=== PATIENT | female | born 1945 ===

== ENCOUNTER 2020-12-22 10:22 | Outpatient (REF) | payer MEDICARE, SELFPAY ==
--- NOTE | 2020-12-22 10:27 | MM_ITS ---
EXAMINATION: MM SCREENING DIGITAL BREAST TOMOSYNTHESIS, BILATERAL CLINICAL INFORMATION: Screening. Asymptomatic. The lifetime risk of breast cancer based on the Tyrer-Cuzick Model is 3%. COMPARISON: Mammography: 12/17/2019, 11/21/2018, 11/04/2017 TECHNIQUE: Digital breast tomosynthesis is performed in both the craniocaudal and mediolateral oblique views along with computer-aided detection (CAD). Synthesized 2D images are generated from the tomosynthesis. FINDINGS: There are scattered areas of fibroglandular density (ACR BI-RADS breast composition Category b). There are no significant masses, abnormal calcifications, or other abnormalities. There are scattered benign round and vascular calcifications again seen. The axilla and skin contours are unremarkable. MM/MM tomosynthesis screening BI IMPRESSION: No mammographic evidence of malignancy. ASSESSMENT: BI-RADS 2: Benign RECOMMENDATION: Routine annual mammography screening. This patient's information was entered into a reminder system with a target due date for their next mammogram.
== END 2020-12-22 10:23 | disposition home or self-care (01) ==
LOC: HO.MAMMO 10:22
PROVIDERS: PCP Internal Medicine; Visit Provider Internal Medicine
DX: Z12.31 Encounter for screening mammogram for malignant neoplasm of breast (principal)
CPT/HCPCS: 77063; 77067

== ENCOUNTER 2021-04-17 07:56 | Outpatient (REF) | payer MEDICARE, SELFPAY ==
[2021-04-17 10:21] LABS: MANUAL DIFF FLAG NO
[2021-04-17 10:43] LABS: Estimated Average Glucose 148 mg/dL; Hemoglobin A1c % 6.8 %
[2021-04-17 10:52] LABS: Alanine Aminotransferase 17 U/L (0-31); Albumin Level 4.4 g/dL (3.5-5.0); Alkaline Phosphatase 72 U/L (39-117); Anion Gap 13 (12-20); Aspartate Amino Transferase 26 U/L (5-31); Bilirubin Total 0.6 mg/dL (0.0-1.0); Blood Urea Nitrogen 15 mg/dL (9-16); Calcium 9.5 mg/dL (8.4-10.2); Carbon Dioxide 27 mmol/L (22-29); Chloride 102 mmol/L (96-108); Cholesterol 151 mg/dL; Estimated Glomerular Filt Rate > 60; Glucose Fasting 116 mg/dL (60-99); HDL Cholesterol 64 mg/dL; LDL Cholesterol Calculated 62 mg/dl; Potassium 4.6 mmol/L (3.3-5.1); Sodium 137 mmol/L (135-145); Total Protein 7.3 g/dL (6.5-8.0); Triglycerides 126 mg/dL
[2021-04-17 10:55] LABS: Basophils Absolute Auto 0.1 X10*3/uL (0.0-0.2); Eosinophils Absolute Auto 0.2 X10*3/uL (0.0-0.4); Eosinophils Percent Auto 4.8 % (0-4); Hematocrit 35.5 % (37-47); Hemoglobin 11.5 g/dl (12.0-16.0); Imm Gran Abs Auto 0.01 X10*3/uL (0.00-0.03); Imm Gran Pct Auto 0.2 % (0.0-0.4); Lymphocytes Absolute Auto 1.6 X10*3/uL (1.2-4.9); Lymphocytes Percent Auto 32.3 % (20-40); Mean Corpuscular HGB Conc 32.4 g/dl (31.0-35.0); Mean Corpuscular Volume 89.6 fL (80-98); Mean Platelet Volume 10.4 fL (9.4-12.3); Monocytes Absolute Auto 0.5 X10*3/uL (0.1-1.2); Neutrophils Absolute Auto 2.6 X10*3/uL (2.0-8.3); Neutrophils Percent Auto 52.7 % (45-73); Platelet Count 225 X10*3/uL (160-400); Red Blood Count 3.96 X10*6/uL (4.20-5.50); Red Cell Distribution Width 12.6 % (11.0-16.0)
[2021-04-17 11:16] LABS: Thyroid Stimulating Hormone 0.89 uIU/mL (0.32-4.0)
[2021-04-17 11:23] LABS: Creatinine Urine 23.93 mg/dL; Microalbum/Creatinine Ratio Ur 37.6 ug/mg cr
== END 2021-04-17 07:57 | disposition home or self-care (01) ==
LOC: HO.10HDL 07:56
PROVIDERS: Visit Provider Internal Medicine
DX: Z00.00 Encounter for general adult medical examination without abnormal findings (principal); E11.9 Type 2 diabetes mellitus without complications; E03.9 Hypothyroidism, unspecified
CPT/HCPCS: 36415; 80053; 80061; 82043; 83036; 84443; 85025

== ENCOUNTER 2022-01-02 07:55 | Outpatient (REF) | payer MEDICARE, SELFPAY ==
--- NOTE | ~2022-01-02 | MM_ITS ---
EXAMINATION: MM SCREENING DIGITAL BREAST TOMOSYNTHESIS, BILATERAL CLINICAL INFORMATION: Screening. Asymptomatic. The lifetime risk of breast cancer based on the Tyrer-Cuzick Model is 2%. COMPARISON: Mammography: 12/22/2020, 12/17/2019, 11/21/2018 TECHNIQUE: Digital breast tomosynthesis is performed in both the craniocaudal and mediolateral oblique views along with computer-aided detection (CAD). Synthesized 2D images are generated from the tomosynthesis. FINDINGS: There are scattered areas of fibroglandular density (ACR BI-RADS breast composition Category b). There are no significant masses, abnormal calcifications, or other abnormalities. Parenchymal pattern is similar to prior studies. There is no developing density or architectural abnormality. The axilla and skin contours are unremarkable. No significant changes. MM/MM tomosynthesis screening BI IMPRESSION: No mammographic evidence of malignancy. ASSESSMENT: BI-RADS 2: Benign RECOMMENDATION: Routine annual mammography screening. This patient's information was entered into a reminder system with a target due date for their next mammogram.
== END 2022-01-02 07:56 | disposition home or self-care (01) ==
LOC: HO.MAMMO 07:55
PROVIDERS: PCP Internal Medicine; Visit Provider Internal Medicine
DX: Z12.31 Encounter for screening mammogram for malignant neoplasm of breast (principal)
CPT/HCPCS: 77063; 77067

== ENCOUNTER 2022-03-07 08:16 | Outpatient (REF) | payer MEDICARE, SELFPAY ==
[2022-03-07 11:02] LABS: Cholesterol 140 mg/dL; Glucose Fasting 105 mg/dL (60-99); HDL Cholesterol 60 mg/dL; LDL Cholesterol Calculated 63 mg/dl; Triglycerides 89 mg/dL
[2022-03-07 12:14] LABS: Estimated Average Glucose 148 mg/dL; Hemoglobin A1c % 6.8 %
== END 2022-03-07 08:17 | disposition home or self-care (01) ==
LOC: HO.10HDL 08:16
PROVIDERS: Visit Provider Internal Medicine
DX: E11.65 Type 2 diabetes mellitus with hyperglycemia (principal)
CPT/HCPCS: 36415; 80061; 82947; 83036

== ENCOUNTER 2022-05-23 13:57 | Emergency (ER) | payer MEDICARE, SELFPAY ==
[2022-05-23 15:13] VITALS: BP 180/61; PULSE 104; RESP 17; TEMP 37.1; O2SAT 98; BMI 20.1
[2022-05-23 16:28] LABS: MANUAL DIFF FLAG NO
[2022-05-23 16:45] LABS: Basophils Percent Auto 0.3 % (0-2); Eosinophils Percent Auto 0.1 % (0-4); Hematocrit 35.7 % (37.0-47.0); Hemoglobin 11.6 g/dl (12.0-16.0); Imm Gran Abs Auto 0.03 X10*3/uL (0.00-0.03); Imm Gran Pct Auto 0.3 % (0.0-0.4); Lymphocytes Absolute Auto 1.2 X10*3/uL (1.2-4.9); Lymphocytes Percent Auto 12.3 % (20-40); Mean Corpuscular HGB Conc 32.5 g/dl (31.0-35.0); Mean Corpuscular Hemoglobin 28.1 pg (27.0-33.0); Mean Corpuscular Volume 86.4 fL (80.0-98.0); Mean Platelet Volume 9.8 fL (9.4-12.3); Monocytes Absolute Auto 0.6 X10*3/uL (0.1-1.2); Platelet Count 257 X10*3/uL (160-400); Red Blood Count 4.13 X10*6/uL (4.20-5.50); Red Cell Distribution Width 12.7 % (11.0-16.0); White Blood Count 9.9 X10*3/uL (4.8-10.8)
[2022-05-23 16:50] LABS: Alanine Aminotransferase 16 U/L (0-31); Albumin Level 4.5 g/dL (3.5-5.0); Alkaline Phosphatase 85 U/L (39-117); Anion Gap 16 (12-20); Aspartate Amino Transferase 27 U/L (5-31); Bilirubin Total 0.4 mg/dL (0.0-1.0); Blood Urea Nitrogen 15 mg/dL (9-16); Carbon Dioxide 26 mmol/L (22-29); Chloride 104 mmol/L (96-108); Creatinine Clr Calc Pharmacy 57.3; Estimated Glomerular Filt Rate > 60; Glucose Random 140 mg/dL (60-115); Potassium 5.4 mmol/L (3.3-5.1); Sodium 141 mmol/L (135-145)
== END 2022-05-23 22:23 | disposition left against medical advice (07) ==
PROVIDERS: Emergency Provider Emergency Medicine; PCP Internal Medicine
DX: J39.0 Retropharyngeal and parapharyngeal abscess (principal); R51.9 Headache, unspecified; H92.01 Otalgia, right ear; E78.5 Hyperlipidemia, unspecified; I10 Essential (primary) hypertension; E11.9 Type 2 diabetes mellitus without complications; Z87.891 Personal history of nicotine dependence
CPT/HCPCS: 36415; 80053; 85025; 99281; 99283

== ENCOUNTER 2023-05-21 08:38 | Outpatient (REF) | payer MEDICARE, SELFPAY ==
[2023-05-21 10:25] LABS: MANUAL DIFF FLAG NO
[2023-05-21 10:31] LABS: Basophils Absolute Auto 0.1 X10*3/uL (0.0-0.2); Basophils Percent Auto 1.3 % (0-2); Eosinophils Absolute Auto 0.2 X10*3/uL (0.0-0.4); Hematocrit 35.3 % (37.0-47.0); Hemoglobin 11.2 g/dl (12.0-16.0); Imm Gran Abs Auto 0.01 X10*3/uL (0.00-0.03); Imm Gran Pct Auto 0.2 % (0.0-0.4); Lymphocytes Absolute Auto 1.7 X10*3/uL (1.2-4.9); Lymphocytes Percent Auto 31.6 % (20-40); Mean Corpuscular HGB Conc 31.7 g/dl (31.0-35.0); Mean Corpuscular Volume 85.1 fL (80.0-98.0); Monocytes Absolute Auto 0.4 X10*3/uL (0.1-1.2); Neutrophils Percent Auto 55.9 % (45-73); Platelet Count 218 X10*3/uL (160-400); Red Blood Count 4.15 X10*6/uL (4.20-5.50); Red Cell Distribution Width 13.3 % (11.0-16.0); White Blood Count 5.4 X10*3/uL (4.8-10.8)
[2023-05-21 11:12] LABS: Alanine Aminotransferase 20 U/L (0-31); Albumin Level 4.2 g/dL (3.5-5.0); Alkaline Phosphatase 71 U/L (39-117); Anion Gap 13 (12-20); Aspartate Amino Transferase 33 U/L (5-31); Bilirubin Total 0.6 mg/dL (0.0-1.0); Blood Urea Nitrogen 18 mg/dL (9-16); Calcium 9.8 mg/dL (8.4-10.2); Carbon Dioxide 29 mmol/L (22-29); Chloride 104 mmol/L (96-108); Cholesterol 138 mg/dL; Estimated Glomerular Filt Rate > 60; Glucose Fasting 118 mg/dL (60-99); HDL Cholesterol 56 mg/dL; LDL Cholesterol Calculated 64 mg/dl; Potassium 4.5 mmol/L (3.3-5.1); Sodium 141 mmol/L (135-145); Total Protein 7.6 g/dL (6.5-8.0); Triglycerides 91 mg/dL
[2023-05-21 11:31] LABS: Thyroid Stimulating Hormone 1.32 uIU/mL (0.32-4.0)
== END 2023-05-21 08:39 | disposition home or self-care (01) ==
LOC: HO.10HDL 08:38
PROVIDERS: Visit Provider Internal Medicine
DX: D64.9 Anemia, unspecified (principal); E03.9 Hypothyroidism, unspecified; E78.5 Hyperlipidemia, unspecified; N28.9 Disorder of kidney and ureter, unspecified
CPT/HCPCS: 36415; 80053; 80061; 84443; 85025

== ENCOUNTER 2024-06-09 08:28 | Outpatient (REF) | payer MEDICARE, SELFPAY ==
[2024-06-09 10:18] LABS: MANUAL DIFF FLAG NO
[2024-06-09 10:29] LABS: Basophils Absolute Auto 0.1 X10*3/uL (0.0-0.2); Basophils Percent Auto 1.2 % (0-2); Eosinophils Absolute Auto 0.2 X10*3/uL (0.0-0.4); Eosinophils Percent Auto 4.8 % (0-4); Hematocrit 33.3 % (37.0-47.0); Hemoglobin 10.7 g/dl (12.0-16.0); Imm Gran Abs Auto 0.01 X10*3/uL (0.00-0.03); Imm Gran Pct Auto 0.2 % (0.0-0.4); Lymphocytes Absolute Auto 1.5 X10*3/uL (1.2-4.9); Mean Corpuscular HGB Conc 32.1 g/dl (31.0-35.0); Mean Corpuscular Hemoglobin 26.9 pg (27.0-33.0); Mean Corpuscular Volume 83.7 fL (80.0-98.0); Mean Platelet Volume 10.6 fL (9.4-12.3); Monocytes Absolute Auto 0.5 X10*3/uL (0.1-1.2); Neutrophils Absolute Auto 2.7 x10*3/uL (2.0-8.3); Neutrophils Percent Auto 53.8 % (45-73); Platelet Count 212 X10*3/uL (160-400); Red Blood Count 3.98 X10*6/uL (4.20-5.50); Red Cell Distribution Width 13.9 % (11.0-16.0)
[2024-06-09 10:42] LABS: Alanine Aminotransferase 13 U/L (0-31); Albumin Level 4.3 g/dL (3.5-5.0); Alkaline Phosphatase 71 U/L (39-117); Anion Gap 16 (12-20); Aspartate Amino Transferase 25 U/L (5-31); Bilirubin Total 0.5 mg/dL (0.0-1.0); Blood Urea Nitrogen 21 mg/dL (9-16); Calcium 9.9 mg/dL (8.4-10.2); Carbon Dioxide 26 mmol/L (22-29); Chloride 100 mmol/L (96-108); Cholesterol 141 mg/dL (<200); Estimated Glomerular Filt Rate > 60; Glucose Fasting 134 mg/dL (60-99); HDL Cholesterol 58 mg/dL (>40); LDL Cholesterol Calculated 62 mg/dL (<100); Potassium 4.5 mmol/L (3.3-5.1); Sodium 137 mmol/L (135-145); Total Protein 7.8 g/dL (6.5-8.0); Triglycerides 106 mg/dL (<150)
[2024-06-09 11:02] LABS: Thyroid Stimulating Hormone 1.78 uIU/mL (0.32-4.0)
== END 2024-06-09 08:29 | disposition home or self-care (01) ==
LOC: HO.10HDL 08:28
PROVIDERS: Visit Provider Internal Medicine
DX: Z13.220 Encounter for screening for lipoid disorders (principal); Z13.29 Encounter for screening for other suspected endocrine disorder; Z20.2 Contact with and (suspected) exposure to infections with a predominantly sexual mode of transmission
CPT/HCPCS: 36415; 80053; 80061; 84443; 85025

== ENCOUNTER 2024-07-01 11:05 | Outpatient (AMB) | payer MEDICARE, SELFPAY ==
--- NOTE | 2024-07-01 11:09 | A.OFFVIS_ITS ---
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 by: Spouse Allergies No Known Allergies Allergy (Verified 07/01/24 11:14) Medication List - Last Reconciled 07/02/24 by Rick Swift MD blood sugar diagnostic Onetouch Ultra test Strips To check blood sugars once a day ezetimibe 10 mg PO DAILY gabapentin 300 mg PO BID glipizide 10 mg (2 x 5 mg) PO BID lancets TO CHECK BLOOD SUGARS ONCE A DAY lancets Onetouch Lancets to check blood sugars once a day lisinopril 10 mg PO DAILY metformin 500 mg PO BID omeprazole 20 mg PO DAILY simvastatin 40 mg PO DAILY HPI wellness HPI Details hyperlipidemia hypertension and diabetes; compliant [facility] Medical History (Updated 07/02/24 @ 09:43 by Rick Swift MD) Diabetes mellitus Surgical History History of hip replacement Family History Mother No problems noted. Father No problems noted. Social History Housing: House Alcohol intake: never Patient Tobacco Use Status: Former Tobacco user Tobacco use type: Cigarette Second Hand Smoke Exposure: No Current occupational status: retired Questionnaire Medicare Wellness Checkup [age] What gender do you identify with?: female During the past 4 weeks, how much have you been bothered by emotional problems such as feeling anxious, depressed, irritable, sad or downhearted, and blue?: not at all During the past 4 weeks, has your physical & emotional health limited your social activities with family, friends, neighbors, or groups?: not at all During the past 4 weeks, how much bodily pain have you generally had?: no pain During the past 4 weeks, was someone available to help you if you needed & wanted help?: yes, as much as I wanted During the past 4 weeks, what was the hardest physical activity you could do for at least 2 minutes?: heavy Can you get to places out of walking distance without help? (For eg., can you travel alone on buses, taxis or drive your car?): Yes Can you go shopping for groceries or clothes without someone's help?: Yes Can you prepare your own meals?: Yes Can you do your housework without help?: Yes Because of any health problems, do you need the help of another person with your personal care needs such as eating, bathing, dressing or getting around the house?: Yes Can you handle your own money without help?: Yes During the past 4 weeks, how would you rate your health in general?: excellent During the past 4 weeks how have things been going for you?: very well; could hardly better Are you having difficulties driving your car?: not applicable, I don't use a car Do you always fasten your seat belt when you are in a car?: yes, usually During past 4 weeks, have you been bothered by the following: never: Falling or dizzy when standing up, Sexual problems?, Trouble eating well?, Teeth or denture problems?, Problems using the telephone? and Tiredness or fatigue? Have you fallen 2 or more times in the past year?: No Are you afraid of falling?: No Are you a smoker?: no During the past 4 weeks, how many drinks of wine, beer, or other alcoholic beverages did you have?: no alcohol at all Do you exercise for about 20 minutes 3 or more times a week?: yes, most of the time Have you been given information to help with the following?: no: Hazards in your house that might hurt you? and no: Keeping track of your medications? How often do you have trouble taking medicines the way you have been told to take them?: I always take medicine as prescribed How confident are you that you can control & manage most of your health problems?: very confident What is your race?: White Mini Mental State Exam (MMSE) Orientation What is the (year) (season) (date) (day) (month)?: year, season, date, day and month Where are we (state) (county) (town or city) (hospital) (floor)?: state, county, town or city, hospital/clinic and floor Registration Name of 3 unrelated objects clearly and slowly, then ask patient to repeat all 3 of them. (1st repeat determines score. Make sure they can repeat all three): object 1, object 2 and object 3 Recall Ask patient to repeat the 3 items from question #3.: object 1, object 2 and object 3 Score Score: 16 Activity of Daily Living Bathing - sponge bath, tub bath or shower: receives no assistance (gets in/out by self, if usual bathing means Dressing - getting clothes from closets & drawers, including inner/outer garments & fasteners.: gets clothes & gets completely dressed without help Toileting - going to the 'toilet room' for urine/bowel elimination & cleaning self/arranging clothes: goes to toilet room, cleans self, arranges clothes without help Transfer: moves in & out of bed and chair without help (may use support object) Continence: controls urination/bowel movements completely by self Feeding: feeds self without help Total Score: 0 Information obtained from: patient Using telephone: independent Traveling: independent Shopping: independent Preparing meals: independent Housework: independent Taking medicine: independent Managing money: independent PHQ-9 Over the last 2 weeks, how often have you been bothered by any of the following problems? 1. Little interest or pleasure in doing things: not at all 2. Feeling down, depressed, or hopeless: not at all 3. Trouble falling or staying asleep, or sleeping too much: not at all 4. Feeling tired or having little energy: not at all 5. Poor appetite or overeating: not at all 6. Feeling bad about yourself - or that you are a failure or have let yourself or your family down: not at all 7. Trouble concentrating on things, such as reading the newspaper or watching television: not at all 8. Moving or speaking so slowly that other people could have noticed. Or the o pposite - being so fidgety or restless that you have been moving around a lot more than usual: not at all 9. Thoughts that you would be better off or of hurting yourself in some way: not at all Total score: 0 Depression Screening Interpretation: Negative Depression Screening Done: Yes Source: Developed by Drs. Manav Cervantes, Mirlande Sifuentes, Luis Angel Diamond and colleagues, with an educational katya from [employer]. ESA-7 AMB Questionnaire ESA-7 Date ESA - 7 assessed: 07/01/24 Feeling nervous, anxious, or on edge: 0 = Not at all Not being able to stop or control worryin = Not at all Worrying too much about different things: 0 = Not at all Trouble relaxin = Not at all Being so restless that it is hard to sit still: 0 = Not at all Becoming easily annoyed or irritable: 0 = Not at all Feeling afraid as if something awful might happen: 0 = Not at all Total ESA-7 score (0-4 normal; 5-9 mild; 10-14 moderate; 15-21 severe): 0 Source: Developed by Drs. Manav Cervantes, Mirlande Sifuentes, Luis Angel Diamond and colleagues, with an educational katya from [employer]. Fall Risk Assessment Fall Risk Assessment Fall risk assessment: No Falls in past year Physical Exam Vital Signs: Last Vital Signs BP 170/80 H 07/01/24 11:12 BMI result Body Mass Index 20.6 Results AMB Hemoglobin A1c AMB Hemoglobin A1c 7.7 % Last Edit by DANIEL Diaz on 07/01/24 11:2 0 Results Reviewed Results Reviewed: Laboratory Last Values Hgb A1c (Clinic) 7.7 % (4.0-6.0) H 07/01/24 11:18 Assessment & Plan Assessment & Plan (1) Encounter for subsequent annual wellness visit (AWV) in Medicare patient: Code(s): Z00.00 - Encounter for general adult medical examination without abnormal findings Plan: stable; do labs Orders: Orders AMB Hemoglobin A1c 07/01/24 E11.9 - Type 2 diabetes mellitus without complications Lipid Panel Today Z13.220 - Encounter for screening for lipoid disorders Comprehensive [place]. Panel Fast Today Z13.9 - Encounter for screening, unspecified Hemoglobin A1c Today R73.9 - Hyperglycemia, unspecified Thyroid Stimulating Hormone Today Z13.29 - Encounter for screening for other suspected endocrine disorder Complete Blood Count Auto Diff Today Z13.0 - Encounter for screening for diseases of the blood and blood-forming organs and certain disorders involving the immune mechanism Microalbumin, Random (w Creat) Today E11.69 - Type 2 diabetes mellitus with other specified complication, E66.01 - Morbid (severe) obesity due to excess calories Quality Reporting (2019) Fall Risk Screening ([facility] 139) Fall risk assessment: No Falls in past year Depression/Bipolar (159/160/161/177) PHQ-9: Total score: 0 Coding Level of Care Code Medicare Subsequent (G0439) Diagnoses Encounter for subsequent annual wellness visit (AWV) in Medicare patient Z00.00 CPT Codes Advance Care Planning - Advance Care Planning discussion: On file, no changes ([id number]) Advance Care Planning Advance Care Planning discussion: On file, no changes Forms completed: Health Care Proxy
[2024-07-01 11:12] VITALS: BP 170/80; BMI 20.6
== END 2024-07-01 11:44 | disposition home or self-care (01) ==
PROVIDERS: PCP Internal Medicine; Visit Provider Internal Medicine
DX: E11.9 Type 2 diabetes mellitus without complications (principal)
CPT/HCPCS: 1123F; 83036; G0439

== ENCOUNTER 2025-03-23 14:25 | Outpatient (AMB) | payer MEDICARE, SELFPAY ==
--- NOTE | 2025-03-23 14:34 | MHC.PC.OV ---
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 Accompanied by: Spouse Allergies No Known Allergies Allergy (Verified 03/23/25 14:37) Medication List - Last Reviewed 03/23/25 by DANIEL Tabor blood sugar diagnostic Onetouch Ultra test Strips To check blood sugars once a day gabapentin 300 mg PO BID glipizide 10 mg (2 x 5 mg) PO BID lancets TO CHECK BLOOD SUGARS ONCE A DAY lancets Onetouch Lancets to check blood sugars once a day lisinopril 10 mg PO DAILY metformin 500 mg PO BID omeprazole 20 mg PO DAILY simvastatin 40 mg PO DAILY Tobacco use date assessed: 03/23/25 Fall risk assessment: No Falls in past year Last assessed Fall Risk: 03/23/25 Dental Screening Dental Screen Date: 03/23/25 Did you have a dental visit in the last 12 months?: No Did you have a dental problem in the last 6 months where you did not have access to dental care?: No Was dental information given to patient?: No HPI FOLLOW UP TRANSFER FROM [facility] HPI Details 79-year-old female with past medical history of diabetes mellitus, hypertension, hyperlipidemia last seen by Dr. Swift 06/2024 coming in for follow up. Patient does have a history of smoking but quit over 23 years ago. She does regularly exercise using a stationary bike and walks often. She does cook all of her meals for herself and her and does try to adhere to a diabetic diet to the best of her ability. Mammogram: April 26 2025 booked DEXA: declining colonoscopy: declining [facility] for routine eye care COUNTS INCLUDE 234 BEDS AT THE [facility] Medical History Diabetes mellitus Surgical History History of hip replacement Family History Mother No problems noted. Father No problems noted. Social History Housing: House Alcohol intake: never Patient Tobacco Use Status: Former Tobacco user Tobacco use type: Cigarette Years Smoked: 23 years ago QUIT e-Cigarette/Vaping Use: Never Used Second Hand Smoke Exposure: Yes service: No Current occupational status: retired Cognitive needs: No Hearing needs: No Vision needs: Yes (Glasses) Questionnaire PHQ-9 Over the last 2 weeks, how often have you been bothered by any of the following problems? 1. Little interest or pleasure in doing things: not at all 2. Feeling down, depressed, or hopeless: not at all 3. Trouble falling or staying asleep, or sleeping too much: not at all 4. Feeling tired or having little energy: not at all 5. Poor appetite or overeating: not at all 6. Feeling bad about yourself - or that you are a failure or have let yourself or your family down: not at all 7. Trouble concentrating on things, such as reading the newspaper or watching television: not at all 8. Moving or speaking so slowly that other people could have noticed. Or the opposite - being so fidgety or restless that you have been moving around a lot more than usual: not at all 9. Thoughts that you would be better off or of hurting yourself in some way: not at all Total score: 0 Depression Screening Interpretation: Negative Depression Screening Done: Yes Source: Developed by Drs. Manav Cervantes, Mirlande Sifuentes, Luis Angel Diamond and colleagues, with an educational katya from [employer]. Thrive Questionnaire Date Thrive assessed: 03/23/25 I am a: Patient What is your living situation today?: I have a steady place to live Within the past 12 months, did the food you bought not last and you didn't have the money to get more?: Never true Within the past 12 months, did you worry whether your food would run out before you got money to buy more?: Never true Do you have trouble paying for medicines?: No Do you have trouble getting transportation to medical appointments?: No Do you have trouble paying your heating and electricity bill?: No Do you have trouble taking care of your child, family member or friend?: No Do you have trouble with day-to-day activities such as bathing, preparing meals, shopping, managing finances, etc.?: No Are you currently unemployed and looking for a job?: No Are you interested in more education?: No Please select the resources that you would like help with: None Currently or been in a relationship where the following occur: No concerns reported THRIVE Score: 0 AUDIT C Alcohol Use Questionnaire (AUDIT-C) 1. How often do you have a drink containing alcohol?: Never Total Score: 0 ESA-7 AMB Questionnaire ESA-7 Date ESA - 7 assessed: 03/23/25 Feeling nervous, anxious, or on edge: 0 = Not at all Not being able to stop or control worryin = Not at all Worrying too much about different things: 0 = Not at all Trouble relaxin = Not at all Being so restless that it is hard to sit still: 0 = Not at all Becoming easily annoyed or irritable: 0 = Not at all Feeling afraid as if something awful might happen: 0 = Not at all Total ESA-7 score (0-4 normal; 5-9 mild; 10-14 moderate; 15-21 severe): 0 Source: Developed by Drs. Manav Cervantes, Mirlande Sifuentes, Luis Angel Diamond and colleagues, with an educational katya from [employer]. ESA-7 Assessment Billing ESA-7 Assessment Tool: ESA-7 Assessment 08959 Review of Systems Const Denies body aches, Denies chills, Denies fever(s), Denies headache(s) and Denies poor appetite Eyes Details: eye doctor two years ago Reports no additional complaints and Reports requires corrective lenses ENT Denies dysphagia, Denies dizziness, Denies headache(s) and Denies odynophagia Card Denies chest pain, Denies syncope, Denies edema, Denies irregular heart rhythm, Denies lightheadedness and Denies dyspnea Resp Denies cough and Denies dyspnea GI Denies abdominal pain, Denies constipation, Denies dysphagia, Denies diarrhea, Denies nausea, Denies odynophagia and Denies vomiting Reports no additional complaints Musc Reports no additional complaints and Denies abnormal gait Skin/Breast Reports system reviewed and no additional complaints, except as documented Neuro Denies abnormal gait, Denies dizziness, Denies syncope and Denies headache(s) Psych Reports no additional complaints Physical exam (Primary Care) Vital Signs: Last Vital Signs Temp 97.5 F 03/23/25 14:36 Pulse 87 03/23/25 14:36 BP 132/84 03/23/25 14:36 Pulse Ox 98 03/23/25 14:36 Oxygen Delivery Method Room Air 03/23/25 14:36 BMI result Body Mass Index 20.7 Tobacco/Smoking Status: Tobacco use Status Tobacco use date assessed 03/23/25 03/23/25 14:36 Patient Tobacco Use Status Former Tobacco user 03/23/25 14:34 Tobacco use type Cigarette 03/23/25 14:34 e-Cigarette/Vaping Use Never Used 03/23/25 14:36 PHQ-9: PHQ-9 Score PHQ-9: Total score 0 03/23/25 15:35 Depression Screening Interpretation: Negative Thrive Assessment: Date of Thrive Assessment Date Thrive assessed 03/23/25 03/23/25 14:36 Currently or been in a relationship where the following occur: No concerns reported Const General: cooperative, healthy appearing, comfortable and no acute distress Orientation/consciousness: patient oriented x3 HENMT Head: Yes normocephalic Ears: hearing grossly normal bilaterally General nose exam: Normal external nose present Eyes General: appearance normal, both eyes and all related structures Conjunctivae: conjunctivae normal Neck Neck: Yes full ROM and Yes no lymphadenopathy Resp Effort & Inspection: normal respiratory effort Auscultation: clear to auscultation bilaterally, no crackles, no rales, no rhonchi and no wheezes Cardio Rate: regular rate Rhythm: regular rhythm Skin General skin exam: no rashes or lesions noted Neuro General: patient oriented x3 Gait exam (Neuro): Normal gait present Extrem General: Yes normal to inspection, Yes full ROM and No edema Psych Affect: normal affect Attitude: cooperative Insight: Good insight present (Psych) Judgement: Good judgement present (Psych) Results AMB Hemoglobin A1c AMB Hemoglobin A1c 7.5 % Last Edit by DANIEL Tabor on 03/23/25 14:55 Results Reviewed Results Reviewed: Laboratory Last Values Hgb A1c (Clinic) 7.5 % (4.0-6.0) H 03/23/25 14:33 Coding Level of Care Code Est Pt Level 3 (78927) Diagnoses Diabetes mellitus E11.9 Hypertension I10 Hyperlipidemia E78.5 Additional Codes ESA-7 Assessment Billing - ESA-7 Assessment Tool: ESA-7 Assessment 57292 ([id number]) Assessment & Plan Assessment & Plan (1) Diabetes mellitus: Code(s): E11.9 - Type 2 diabetes mellitus without complications Category: Medical Plan: Decrease the amount of carbohydrates such as pasta, bread, rice, and potatoes and limit the amount of sweets. Although fruits are generally healthy they should be eaten in moderation as they are still high in sugar. Hemoglobin A1c goal of less than 7%. Currently on metformin 500 mg b.i.d., glipizide 10 mg p.o. b.i.d. A1c elevated in the clinic today 7.5% today I did recommend increasing the metformin to 1000 mg b.i.d. however she is declining further medication adjustment at this time. She would like to work on dietary and lifestyle modification. I did discuss having elevated sugars as put her at risk for cardiovascular event as well as kidney and I disease. She understands the risks and would like to continue with dietary modification (2) Hypertension: Code(s): I10 - Essential (primary) hypertension Category: Medical Plan: Continue on current blood pressure medication. Avoid salt intake and encourage healthy diet and regular exercise. Currently on lisinopril 10 mg (3) Hyperlipidemia: Code(s): E78.5 - Hyperlipidemia, unspecified Category: Medical Plan: Avoid foods that are high in cholesterol such as red meat, fried foods, eggs and baked goods. Triglyceride goal of less than 150 and LDL goal of less than 100. Continue on simvastatin and Zetia. Plan to repeat blood work in 3 months. Plan This note was constructed using voice recognition software. While every effort has been made to ensure accuracy and funeral pre need consultant, still areas may have been included sometimes these areas may affect the content or meeting of the given symptoms. Total time spent caring for the patient today was 30 minutes. This includes time spent before the visit reviewing the chart, time spent during the visit, and time spent after the visit and documentation. Patient was informed and verbally consented to the use of an ambient scribe for clinic note documentation during this visit. Orders: Orders AMB Hemoglobin A1c Today E11.9 - Type 2 diabetes mellitus without complications Complete Blood Count Auto Diff 3 Months Z00.00 - Encounter for general adult medical examination without abnormal findings Free T4 (Free Thyroxine) 3 Months Z00.00 - Encounter for general adult medical examination without abnormal findings Microalbumin, Random (w Creat) Today E11.9 - Type 2 diabetes mellitus without complications Comprehensive Met. Panel 3 Months Z00.00 - Encounter for general adult medical examination without abnormal findings Lipid Panel 3 Months E78.00 - Pure hypercholesterolemia, unspecified Vitamin B12 and Folate 3 Months Z00.00 - Encounter for general adult medical examination without abnormal findings Vitamin D 25-OH Total 3 Months Z00.00 - Encounter for general adult medical examination without abnormal findings TSH reflex Free T4 3 Months Z00.00 - Encounter for general adult medical examination without abnormal findings
[2025-03-23 14:36] VITALS: BP 132/84; PULSE 87; TEMP 36.4; O2SAT 98; BMI 20.7
--- OUTSIDE RECORDS SUMMARY | 2025-03-23 16:39 | XMS_ITS | Data Portability ---
Author Organization TETE Alcaraz [facility], [address] Address [address] [place] [address] Care Team Providers Care Ad Taker Name Role Phone MORRIS YOUNGER Primary Care Provider [phone] Assessment No assessment recorded. Plan of Treatment Reminders Order Date Submit Date Provider Last Modified By Organization Details Last Modified Time Details Appointments None record ed. Lab None record ed. Referral None record ed. Procedures None record ed. Surgeries None record ed. Imaging None record ed. Medication Orders None record ed. Patient TargetsNo targets recorded. Patient Instructions Encounter Date Encounter Id Patient Instructions Last Modified By Organization Details Last Modified Time 06/09/2023 [id number] earwax blockage: care instructions [email or web address] Not available 06/09/2023 19:23:38 Reason for Referral None Reported. Problems Name Problem SNOMED Code Status Onset Date Resolution Date Notes Provider Name and Address Organization Details Recorded Time Diabetes mellitus 25875602 Active 2022 Janet ford PA - [facility] 3 18:57:10 Hypertensive disorder 07784101 Active 2022 Janet ford PA - [facility] 3 18:57:15 Neuropathy 288639752 Active 2022 Janet ford PA - [facility] 3 18:57:21 Acid reflux 665787424 Active 2022 Janet ford PA - [facility] 3 18:57:28 Problem Notes None recorded. Procedures Surgical History Date Name Laterality Status Provider Name and Address Organization Details Recorded Time Cerumen Removal by Irrigation completed ELIAN RENEE PA Isabel [facility] 06/09/2023 19:35:48 Imaging Results None recorded. Procedure Notes None recorded. Medical Equipment None Reported. Allergies No known drug allergies Medications Name Sig Start Date Stop Date Status Note LastModified by Organization Details LastModified Time metformin 500 mg tablet active Not Available Not Available Not Available simvastatin 40 mg tablet active Not Available Not Available Not Available OneTouch Ultra Test strips FOR DX: E11.9 ONETOUCH ULTRA TEST STRIPS TO CHECK BLOOD SUGARS ONCE A DAY. FILL 01/30/2306/09 completed Not Available Not Available Not Available lisinopril 10 mg tablet active Not Available Not Available Not Available gabapentin 300 mg capsule active Not Available Not Available Not Available omeprazole 20 mg capsule,del ayed release active Not Available Not Available Not Available glipizide 5 mg tablet active Not Available Not Available No t Available ezetimibe 10 mg tablet active Not Available Not Available Not Available OneTouch UltraSoft Lancets TO CHECK BLOOD SUGARS ONCE A DAY 06/09 completed Not Available Not Available Not Available Vitals Date Recorded Body height Body mass index (BMI) Body weight Pain severity - 0-10 verbal numeric rating [Score] - Reported Respiratory rate Oxygen saturation Oxygen saturation in Arterial blood by Pulse oximetry Heart rate Body temperature Systolic blood pressure Diastolic blood pressure Provider Name and Address Organization Details Last Updated DateTime 3 167.64 cm 20.6 kg/m2 47372.0 3 g 0 18 /min 99 % 99 % 88 /min 98.4 [degF] 174 mm[Hg] 80 mm[Hg] Janet Hall [facility] 18:59:38 Social History Question Answer Notes LastModified by Organizat ion Details LastModified Time Tobacco Smoking Status Never Smoker Janet ford PA [facility] 06/09/2023 18:58:17 What Is Your Level Of Alcohol Consumption? None Information not available 06/09/2023 Do You Use Any Illicit Or Recreational Drugs? No Information not available 06/09/2023 Have You Recently Traveled Abroad? No Information not available 06/09/2023 Do You Or Have You Ever Used Any Other Forms Of Tobacco Or Nicotine? No Information not available 06/09/2023 Sex: Unknown Functional Status None recorded. Mental Status None recorded. Family History Relationship Description Onset Age of this Age Resolved Age Notes LastModified by Organization Details LastModified Time Father No current problems or disability [email or web address] Not available 06/09 18:58:08 Mother No current problems or disability [email or web address] Not available 06/09 18:58:08 Medical History No medical history recorded. Gynecological HistoryNo gynecological history recorded. Obstetrics History GPAL:G 0 P 0 0 0 0 Immunizations Vaccine Type Date Status Note Provider Nam e and Address Organization Details Recorded Time COVID-19, mRNA, LNP-S, PF, 30 mcg/0.3 mL dose 02/02/2021 completed Janet Monfevandae null, PA - [facility] 06/09/2023 18:56:24 COVID-19, mRNA, LNP-S, PF, 30 mcg/0.3 mL dose 02/23/2021 completed Janet Almazane null, PA - [facility] 06/09/2023 18:56:24 COVID-19, mRNA, LNP-S, PF, 30 mcg/0.3 mL dose 08/29/2021 completed Janet Nairfevandae null, PA - [facility] 06/09/2023 18:56:24 COVID-19, mRNA, LNP-S, PF, 30 mcg/0.3 mL dose, dharmesh-sucrose 04/12/2022 completed Janet Almazane null, PA - [facility] 06/09/2023 18:56:24 COVID-19, mRNA, LNP-S, bivalent, PF, 30 mcg/0.3 mL dose 12/04/2022 completed Janet Nairfevandae null, PA - [facility] 06/09/2023 18:56:24 Past Encounters Encounter ID Performer Location Encounter Start Date Encounter Closed Date Diagnosis/Indication Diagnosis SNOMED-CT Code Diagnosis ICD10 Code Diagnosis Note [id number] [address] [address] 05/23/2022 12:17:54 05/23/2022 14:12:06 [id number] [address] [address] 09/12/2019 08:23:47 09/12/2019 08:46:34 [id number] Jason Alfaro DO [address] [place] [address] 06/09/2023 18:45:50 06/09/2023 19:36:47 Impacted cerumen of bilateral ears 8064864400 551384 H61.23 Pt tolerated BL ear lavage wellEar canals inspected and clear post procedureT Ms wnl Patient advised to follow up as needed for worsening symptoms or no improvemen t. Health Concerns Section Related Observation LastModified by Organization Detai ls LastModified Time None Recorded Concern Status LastModified by Organization Details LastModified Time None Recorded Advance Directives Directive None Recorded Payers Encounter Date Sequence Insurance Name Policy Number Policy Sosa Covered Member ID Sosa Member ID Guarantor Name 09/12/2019 1 [place] [facility] Ava Murrell [id number] Ava Murrell 09/12/2019 2 [facility] (MEDICARE REPLACEMENT HMO) [id number] Ava Murrell [id number] Ava Murrell 05/23/2022 1 [place] [facility] Ava Murrell [id number] Ava Murrell 05/23/2022 2 [place]MED[place] HMO) [id number] Ava Murrell [id number] Ava Murrell 06/09/2023 1 [place] [facility] Ava Murrell [id number] Ava Murrell 06/09/2023 2 [place]MED[place] HMO) [id number] Ava Murrell [id number] Ava Murrell Notes Date Note Type Note Provider Name and Address Organization Details Recorded Time 06/09/2023 text/html Ear problem UCReported bypatient.Notes:78 yo femalec/o diminished hearing in R ear x 2 weekswent to PCP 05/31/23 and was told has wax in her right ear but did not remove it No traumano swimmingno ear dischargeNo feverNo chillsNo coughNo difficulty breathing or respiratory distressNo CPNo congestionNo ear painNo sore throatNo Abdominal painNo nauseaNo vomitingNp diarrheaNo myalgiaNo fatigueNo rashNo HANo dizzinessNo recent travelNo known sick contacts Jason Tabit, DO [address], [place], [place], [address], [place] PA - [facility] 06/09/2023 19:36:09 OBGyn Episode No OBEpisode recorded.
== END 2025-03-23 15:33 | disposition home or self-care (01) ==
LOC: HO.HMCH 14:26
DX: E11.9 Type 2 diabetes mellitus without complications (principal); I10 Essential (primary) hypertension; E78.5 Hyperlipidemia, unspecified

== ENCOUNTER → 2025-03-23 14:25 | Outpatient (BNVA) | payer MEDICARE, SELFPAY | DX: E11.9 Type 2 diabetes mellitus without complications (principal); E78.5 Hyperlipidemia, unspecified; I10 Essential (primary) hypertension | CPT/HCPCS: 83036; 96127; 99212 ==

== ENCOUNTER 2025-04-26 12:03 | Outpatient (REF) | payer MEDICARE, SELFPAY ==
--- OUTSIDE RECORDS SUMMARY | 2025-04-26 13:12 | XMS_ITS | Data Portability ---
Author Organization [facility]ETE Alcaraz [facility], [address] Address [address] [place] [address] Care Team Providers Care Refrigerator Room Clerk Name Role Phone MORRIS YOUNGER Primary Care Provider [phone] Assessment No assessment recorded. Plan of Treatment [...] By Organization Details Last Modified Time 06/09/2023 [id number] earwax blockage: care instructions [email or web address] Not available 06/09/2023 19:23:38 Reason for Referral None Reported. Problems Name Problem SNOMED Code Status Onset Date Resolution Date Notes Provider Name and Address Organization Details Recorded Time Diabetes mellitus 08126272 Active 2022 Janet ford PA - [facility] 3 18:57:10 Hypertensive disorder 31733322 Active 2022 Janet ford PA - [facility] 3 18:57:15 Neuropathy 566011040 Active 2022 Janet ford PA - [facility] 3 18:57:21 Acid reflux 120832027 Active 2022 [facility]d [facility] - [facility] [...] height Body mass index (BMI) Body weight Respiratory rate Oxygen saturation Oxygen saturation in Arterial blood by Pulse oximetry Heart rate Body temperature Systolic blood pressure Diastolic blood pressure Provider Name and Address Organization Details Last Updated DateTime 167.64 cm 20.6 kg/m2 84945.0 3 g 18 /min 99 % 99 % 88 /min 98.4 [degF] 174 mm[Hg] 80 mm[Hg] Janet EPSTEIN [facility] 18:59:38 Social History Question Answer Notes LastModified by Traxian Details LastModified Time Tobacco Smoking Status Never Smoker Janet ford Dist[facility] 06/09/2023 18:58:17 Have You Recently Traveled Abroad? No Information not available 06/09/2023 Sex: Unknown Functional Status Question Answer Note LastModified by [employer] Details LastModified Time Do you use any illicit or recreational drugs? No Information not available 06/09/2023 Do you or have you ever used any other forms of tobacco or nicotine? No Information not available 06/09/2023 What is your level of alcohol consumption? None Information not available 06/09/2023 Mental Status None recorded. Family History Relationship [...] 30 mcg/0.3 mL dose 02/02/2021 completed Janet Garrison null, PA - [facility] 06/09/2023 18:56:24 COVID-19, mRNA, LNP-S, PF, 30 mcg/0.3 mL dose 02/23/2021 completed Janet Garrison null, PA - [facility] 06/09/2023 18:56:24 COVID-19, mRNA, LNP-S, PF, 30 mcg/0.3 mL dose 08/29/2021 completed Janet Garrison null, PA - [facility] 06/09/2023 18:56:24 COVID-19, mRNA, LNP-S, PF, 30 mcg/0.3 mL dose, dharmesh-sucrose 04/12/2022 completed Janet Garrison null, PA - [facility] 06/09/2023 18:56:24 COVID-19, mRNA, LNP-S, bivalent, PF, 30 mcg/0.3 mL dose 12/04/2022 completed Janet Garrison null, PA - [facility] 06/09/2023 18:56:24 Past Encounters Encounter ID Performer Location Encounter Start Date Encounter Closed Date Diagnosis/Indication Diagnosis SNOMED-CT Code Diagnosis ICD10 Code Diagnosis Note [id number] [address] [address] 05/23/2022 12:17:54 05/23/2022 14:12:06 [id number] [address] [address] [address] 09/12/2019 08:23:47 09/12/2019 08:46:34 [id number] Jason Alfaro DO [address] [facility] [place] [address] 06/09/2023 18:45:50 06/09/2023 19:36:47 Impacted cerumen of bilateral ears 9103444322 024259 H61.23 Pt tolerated BL ear lavage wellEar canals inspected and clear post procedureT Ms wnl Patient advised to follow up as needed for worsening symptoms or no improvemen t. Health Concerns Section Related Observation LastModified by Organization Detai ls LastModified Time None Recorded Concern Status LastModified by Organization Details LastModified Time None Recorded Advance Directives Directive None Recorded Payers Insurance Date Sequence Insurance Name Policy Number Policy Sosa Covered Member ID Sosa Member ID Guarantor Name 06/09/2023 1 [place] [employer] [facility] Ava Murrell [id number] Ava Murrell 06/09/2023 2 [place]MED[place] HMO) [id number] Ava Murrell [id number] Ava Murrell 06/14/2023 2 [place] [id number] Ava Murrell [id number] Ava Murrell Notes Date Note Type [...] dizzinessNo recent travelNo known sick contacts Jason Alfaro DO [address] [place], [address], [place] - [facility] 06/09/2023 19:36:09 OBGyn Episode No OBEpisode recorded.
== END 2025-04-26 12:04 | disposition home or self-care (01) ==
LOC: HO.MAMMO 12:03
DX: Z12.31 Encounter for screening mammogram for malignant neoplasm of breast (principal)
CPT/HCPCS: 77063; 77067

== ENCOUNTER → 2025-04-26 12:45 | Outpatient (BNV) | payer MEDICARE, SELFPAY | PROVIDERS: Visit Provider Internal Medicine | DX: Z12.31 Encounter for screening mammogram for malignant neoplasm of breast (principal) | CPT/HCPCS: 77063; 77067 ==

== ENCOUNTER 2025-06-15 09:02 | Outpatient (REF) | payer MEDICARE, SELFPAY ==
--- OUTSIDE RECORDS SUMMARY | 2025-06-15 09:33 | XMS_ITS | Data Portability ---
Author Organization [facility] Alcaraz , [address] Address [address] [place] [address] Care Team Providers Care Electronic Equipment Maint Tech Name Role Phone MORRIS YOUNGER Primary Care Provider Assessment No assessment recorded. Plan of Treatment [...] By Organization Details Last Modified Time 06/09/2023 [id number] earwax blockage: care instructions [email or web address] Not available 06/09/2023 19:23:38 Reason for Referral None Reported. Problems Name Problem SNOMED Code Status Onset Date Resolution Date Notes Provider Name and Address Organization Details Recorded Time Diabetes mellitus 44352174 Active 2022 Janet ford PA - [facility] 18:57:10 Hypertensive disorder 69018777 Active 2022 Janet ford PA - [facility] 3 18:57:15 Neuropathy 477336073 Active 2022 Janet ford PA - [facility] 3 18:57:21 Acid reflux 124900177 Active 2022 Janet ford PA - [facility] 3 18:57:28 Problem Notes None recorded. Procedures Surgical History Date Name Laterality Status Provider Name and Address Organization Details Recorded Time Cerumen Removal by Irrigation completed ELIAN RENEE PA - [facility] 06/09/2023 19:35:48 Imaging Results None [...] Pulse oximetry Heart rate Body temperature Systolic And Diastolic Provider Name and Address Organization Details Last Updated DateTime 3 167.64 cm 20.6 kg/m2 15896.0 3 g 18 /min 99 % 99 % 88 /min 98.4 [degF] 174/80 mm[Hg] Janet Hall [facility] 18:59:38 Social History Question Answer Notes LastModified by Entomo Details LastModified Time Tobacco Smoking Status Never Smoker [facility] 06/09/2023 18:58:17 Have You Recently Traveled Abroad? No Information not available 06/09/2023 Sex: Unknown Functional Status Question Answer Note LastModified by [employer] Details LastModified Time Do you use any [...] SNOMED-CT Code Diagnosis ICD10 Code Diagnosis Note [id number] [facility] [address] 05/23/2022 12:17:54 05/23/2022 14:12:06 [id number] [address] [address] 09/12/2019 08:23:47 09/12/2019 08:46:34 [id number] Jason Alfaro DO [address] [facility] [place] [address] 06/09/2023 18:45:50 06/09/2023 19:36:47 Impacted cerumen of bilateral ears 1871592921 614061 H61.23 Pt tolerated BL ear lavage wellEar [...] ID Guarantor Name 06/09/2023 1 [place] [employer] [place] Ava Murrell [id number] Ava Murrell 06/09/2023 2 [place]MED[place] HMO) [id number] Ava Murrell [id number] Ava Murrell 06/14/2023 2 [place] [id number] Ava Murrell [id number] Ava Murrell Notes Date Note Type [...] Alfaro DO [address] [place], [address], PA - [facility] 06/09/2023 19:36:09 OBGyn Episode No OBEpisode recorded.
[2025-06-15 09:48] LABS: MANUAL DIFF FLAG NO
[2025-06-15 09:54] LABS: Hematocrit 31.6 % (37.0-47.0); Hemoglobin 10.2 g/dl (12.0-16.0); Imm Gran Abs Auto 0.01 X10*3/uL (0.00-0.03); Imm Gran Pct Auto 0.2 % (0.0-0.4); Lymphocytes Absolute Auto 1.9 X10*3/uL (1.2-4.9); Mean Corpuscular HGB Conc 32.3 g/dl (31.0-35.0); Mean Corpuscular Hemoglobin 26.4 pg (27.0-33.0); Mean Corpuscular Volume 81.9 fL (80.0-98.0); NRBC Abs Auto 0.000 X10*3/uL (0.0-0.012); NRBC Pct Auto 0.0 /100WBC (0.0-0.2); Platelet Count 224 X10*3/uL (160-400); Red Blood Count 3.86 X10*6/uL (4.20-5.50); White Blood Count 5.7 X10*3/uL (4.8-10.8)
[2025-06-15 10:21] LABS: Alanine Aminotransferase 22 U/L (0-31); Albumin Level 4.4 g/dL (3.5-5.0); Alkaline Phosphatase 67 U/L (39-117); Anion Gap 14 (12-20); Aspartate Amino Transferase 35 U/L (5-31); Blood Urea Nitrogen 14 mg/dL (9-16); Calcium 9.6 mg/dL (8.4-10.2); Carbon Dioxide 27 mmol/L (22-29); Chloride 102 mmol/L (96-108); Cholesterol 167 mg/dL (<200); Estimated Glomerular Filt Rate > 60; HDL Cholesterol 58 mg/dL (>40); Potassium 4.5 mmol/L (3.3-5.1); Sodium 138 mmol/L (135-145); Total Protein 7.4 g/dL (6.5-8.0); Triglycerides 113 mg/dL (<150)
[2025-06-15 10:40] LABS: Free T4 (Free Thyroxine) 1.07 ng/dL (0.71-1.85)
[2025-06-15 10:45] LABS: Folate 10.6 ng/mL (> or = 4.0); Vitamin B12 292 pg/mL (200-900)
== END 2025-06-15 09:03 | disposition home or self-care (01) ==
LOC: HO.10HDL 09:02
DX: Z00.00 Encounter for general adult medical examination without abnormal findings (principal); E78.00 Pure hypercholesterolemia, unspecified
CPT/HCPCS: 36415; 80053; 80061; 82306; 82607; 82746; 84439; 84443; 85025

== ENCOUNTER 2025-07-09 13:24 | Outpatient (AMB) | payer MEDICARE, SELFPAY ==
--- NOTE | 2025-07-09 13:29 | MHC.PC.OV ---
Vital Signs 07/09/25 13:31 Height 5 ft 6 in Weight 124 lb 4 oz BMI 20.1 Blood Pressure Location Lt brachial Position Sitting Pulse Source Pulse Oximeter Oxygen Delivery Method Room Air Intake Visit Reasons: WELLNESS [place] Required: No Accompanied by: Self / Same As Patient Allergies No Known Allergies Allergy (Verified 07/09/25 13:30) Tobacco use date assessed: 07/09/25 Fall risk assessment: No Falls in past year Last assessed Fall Risk: 07/09/25 Dental Screening Dental Screen Date: 07/09/25 Did you have a dental visit in the last 12 months?: No Did you have a dental problem in the last 6 months where you did not have access to dental care?: No Was dental information given to patient?: No [facility] Medical History Diabetes mellitus Surgical History History of hip replacement Family History Mother No problems noted. Father No problems noted. Social History Housing: House Alcohol intake: never Patient Tobacco Use Status: Former Tobacco user Tobacco use type: Cigarette Years Smoked: 23 years ago QUIT e-Cigarette/Vaping Use: Never Used Second Hand Smoke Exposure: Yes service: No Current occupational status: retired Cognitive needs: No Hearing needs: No Vision needs: Yes (Glasses) Questionnaire Thrive Questionnaire Date Thrive assessed: 07/09/25 I am a: Patient What is your living situation today?: I have a steady place to live Within the past 12 months, did the food you bought not last and you didn't have the money to get more?: Never true Within the past 12 months, did you worry whether your food would run out before you got money to buy more?: Never true Do you have trouble paying for medicines?: No Do you have trouble getting transportation to medical appointments?: No Do you have trouble paying your heating and electricity bill?: No Do you have trouble taking care of your child, family member or friend?: No Do you have trouble with day-to-day activities such as bathing, preparing meals, shopping, managing finances, etc.?: No Are you currently unemployed and looking for a job?: No Are you interested in more education?: No Please select the resources that you would like help with: None Currently or been in a relationship where the following occur: No concerns reported THRIVE Score: 0 ESA-7 AMB Questionnaire ESA-7 Date ESA - 7 assessed: 07/09/25 Source: Developed by Drs. Manav Cervantes, Mirlande Sifuentes, Luis Angel Diamond and colleagues, with an educational katya from [employer]. Physical exam (Primary Care) Vital Signs: Oxygen Delivery Method Room Air 07/09/25 13:31 Tobacco/Smoking Status: Tobacco use Status Tobacco use date assessed 07/09/25 07/09/25 13:31 Patient Tobacco Use Status Former Tobacco user 07/09/25 13:31 Tobacco use type Cigarette 07/09/25 13:31 e-Cigarette/Vaping Use Never Used 07/09/25 13:31 Thrive Assessment: Date of Thrive Assessment Date Thrive assessed 07/09/25 07/09/25 13:31 Currently or been in a relationship where the following occur: No concerns reported Coding
[2025-07-09 13:31] VITALS: BP 156/70; PULSE 76; O2SAT 97; BMI 20.1
--- NOTE | 2025-07-09 13:36 | AM.OFFVISMDC ---
Intake Vital Signs 07/09/25 13:31 Height 5 ft 6 in Weight 124 lb 4 oz BMI 20.1 BP 156/70 H Blood Pressure Location Lt brachial Position Sitting Pulse 76 Pulse Source Pulse Oximeter Pulse Oximetry (%) 97 Oxygen Delivery Method Room Air Intake Visit Reasons: WELLNESS Carton Catcher Required: No Accompanied by: Spouse Allergies No Known Allergies Allergy (Verified 07/09/25 13:40) Medication List - Last Reconciled 07/09/25 by Shelbi Torres PA-C blood sugar diagnostic Onetouch Ultra test Strips To check blood sugars once a day gabapentin 300 mg PO BID glipizide 10 mg (2 x 5 mg) PO BID lancets TO CHECK BLOOD SUGARS ONCE A DAY lancets Onetouch Lancets to check blood sugars once a day lisinopril 10 mg PO DAILY metformin 500 mg PO BID omeprazole 20 mg PO DAILY simvastatin 40 mg PO DAILY HPI WELLNESS HPI Details 80-year-old female with past medical history of diabetes mellitus, hypertension, hyperlipidemia last seen by Dr. Swift 06/2024 coming in for follow up. Presenting with a wellness checkup. Blood pressure was noted to be high at 152/82 mmHg during the visit. The patient does not regularly monitor blood pressure at home, and there is a plan to increase lisinopril if home readings remain elevated. The patient's A1c was previously 7.5% and has decreased to 7.3%. The patient experiences hypoglycemic episodes at night, likely due to glipizide, which is planned to be replaced with Jardiance pending insurance approval. Mammogram: April 2025 DEXA: declining colonoscopy: declining [facility] for routine eye care [facility] Medical History Diabetes mellitus Surgical History History of hip replacement Family History Mother No problems noted. Father No problems noted. Social History Housing: House Alcohol intake: never Patient Tobacco Use Status: Former Tobacco user Tobacco use type: Cigarette Years Smoked: 23 years ago QUIT e-Cigarette/Vaping Use: Never Used Second Hand Smoke Exposure: Yes service: No Current occupational status: retired Cognitive needs: No Hearing needs: No Vision needs: Yes (Glasses) Questionnaire Medicare Wellness Checkup [age] What gender do you identify with?: female During the past 4 weeks, how much have you been bothered by emotional problems such as feeling anxious, depressed, irritable, sad or downhearted, and blue?: not at all During the past 4 weeks, has your physical & emotional health limited your social activities with family, friends, neighbors, or groups?: not at all During the past 4 weeks, how much bodily pain have you generally had?: no pain During the past 4 weeks, was someone available to help you if you needed & wanted help?: yes, as much as I wanted During the past 4 weeks, what was the hardest physical activity you could do for at least 2 minutes?: heavy Can you get to places out of walking distance without help? (For eg., can you travel alone on buses, taxis or drive your car?): Yes Can you go shopping for groceries or clothes without someone's help?: Yes Can you prepare your own meals?: Yes Can you do your housework without help?: Yes Because of any health problems, do you need the help of another person with your personal care needs such as eating, bathing, dressing or getting around the house?: No Can you handle your own money without help?: Yes During the past 4 weeks, how would you rate your health in general?: very good During the past 4 weeks how have things been going for you?: very well; could hardly better Are you having difficulties driving your car?: not applicable, I don't use a car Do you always fasten your seat belt when you are in a car?: yes, usually During past 4 weeks, have you been bothered by the following: never: Falling or dizzy when standing up, Sexual problems?, Trouble eating well?, Teeth or denture problems? and Problems using the telephone? Have you fallen 2 or more times in the past year?: No Are you afraid of falling?: No Are you a smoker?: no During the past 4 weeks, how many drinks of wine, beer, or other alcoholic beverages did you have?: no alcohol at all Do you exercise for about 20 minutes 3 or more times a week?: yes, most of the time Have you been given information to help with the following?: no: Hazards in your house that might hurt you? and no: Keeping track of your medications? How often do you have trouble taking medicines the way you have been told to take them?: I always take medicine as prescribed How confident are you that you can control & manage most of your health problems?: very confident What is your race?: White PHQ-9 Over the last 2 weeks, how often have you been bothered by any of the following problems? 1. Little interest or pleasure in doing things: not at all 2. Feeling down, depressed, or hopeless: not at all 3. Trouble falling or staying asleep, or sleeping too much: not at all 4. Feeling tired or having little energy: not at all 5. Poor appetite or overeating: not at all 6. Feeling bad about yourself - or that you are a failure or have let yourself or your family down: not at all 7. Trouble concentrating on things, such as reading the newspaper or watching television: not at all 8. Moving or speaking so slowly that other people could have noticed. Or the opposite - being so fidgety or restless that you have been moving around a lot more than usual: not at all 9. Thoughts that you would be better off or of hurting yourself in some way: not at all Total score: 0 75658 - PHQ-9 Billing: Yes Source: Developed by Drs. Manav Cervantes, Mirlande Sifuentes, Luis Angel Diamond and colleagues, with an educational katya from [employer]. Review of Systems Const Denies body aches, Denies fatigue, Denies fever(s), Denies frequent falls, Denies headache(s) and Denies weakness Eyes Reports no additional complaints and Denies change in vision ENT Denies dysphagia, Denies dizziness, Denies facial pain, Denies headache(s), Denies nasal congestion and Denies odynophagia Card Denies chest pain, Denies syncope, Denies irregular heart rhythm, Denies leg edema, Denies lightheadedness and Denies dyspnea Resp Denies cough and Denies dyspnea GI Denies abdominal pain, Denies constipation, Denies dysphagia, Denies dyspepsia, Denies diarrhea, Denies nausea, Denies odynophagia and Denies vomiting Denies dysuria, Denies urinary hesitancy and Denies urinary urgency Musc Denies back pain and Denies myalgias Skin/Breast Reports system reviewed and no additional complaints, except as documented Neuro Denies dizziness, Denies syncope, Denies frequent falls, Denies headache(s) and Denies weakness Psych Reports no additional complaints Endo Denies fatigue Physical Exam Vital Signs: Last Vital Signs Pulse 76 07/09/25 13:31 BP 156/70 H 07/09/25 13:31 Pulse Ox 97 07/09/25 13:31 Oxygen Delivery Method Room Air 07/09/25 13:31 BMI result Body Mass Index 20.1 Const General: cooperative, healthy appearing, comfortable and no acute distress Orientation/consciousness: patient oriented x3 HEENT Head: Yes normocephalic Ears: hearing grossly normal bilaterally, external ears normal, TM's normal bilaterally and EAC's normal General nose exam: Normal external nose present Face and sinus: Yes normal facial exam and Yes sinuses nontender Mouth: Normal oral and palatal mucosa present and tongue normal Throat: Yes posterior oropharynx normal Eyes General: appearance normal, both eyes and all related structures Conjunctivae: conjunctivae normal Pupils: Equal, round and reactive pupils present EOM: EOMs intact bilaterally and No Nystagmus present Neck Neck: Yes normal visual inspection, Yes full ROM and Yes no lymphadenopathy Chest Chest palpation & inspection: normal inspection of the chest Resp Effort & Inspection: normal respiratory effort Auscultation: clear to auscultation bilaterally, no crackles, no rales, no rhonchi, no wheezes and breath sounds present Cardio Rate: regular rate Rhythm: regular rhythm Peripheral pulses: radial pulses present and dorsalis pedis present GI Inspection: Yes normal to inspection and No Abdominal wall edema Palpation (GI): Soft to palpation, not firm and nontender Auscultation: normal bowel sounds Rectal Exam - Female: deferred General: Yes no CVA tenderness Back/Spine/Pelvis Back: no CVA tenderness Skin General skin exam: no rashes or lesions noted Neuro General: patient oriented x3 Cranial nerves: Yes Equal, round and reactive pupils present, Yes Midline tongue present, Yes Ability to bilaterally elevate shoulders present and No Nystagmus present Gait exam (Neuro): Normal gait present Extrem General: Yes normal to inspection, Yes full ROM, No no pedal edema and No edema Psych Speech and movement: Normal speech and movement present Affect: normal affect Insight: Good insight present (Psych) Judgement: Good judgement present (Psych) Results AMB Hemoglobin A1c AMB Hemoglobin A1c 7.3 % Last Edit by Dayron Bullock MA on 07/09/25 14:17 Results Reviewed Results Reviewed: Laboratory Last Values Hgb A1c (Clinic) 7.3 % (4.0-6.0) H 07/09/25 13:46 Assessment & Plan Assessment & Plan (1) Encounter for subsequent annual wellness visit (AWV) in Medicare patient: Code(s): Z00.00 - Encounter for general adult medical examination without abnormal findings Plan: Patient is up-to-date on all recommended routine screenings and vaccinations for her age. She is declining it screenings which has been documented previously. Patient has capacity to make decisions about her health. Healthy diet and regular exercise is encouraged. [place] of care was reviewed with patient patient was provided with a written screening schedule. Healthcare proxy/ MOLST forms were reviewed with patient and has been completed previously. (2) Hypertension: Code(s): I10 - Essential (primary) hypertension Plan: Blood pressure in the office elevated today 156/70 however patient is declining an increase in her medication at this time she would like to maintain on lisinopril 10 mg. Advised patient to monitor blood pressure daily and plan to increase the lisinopril 20 mg if remains above 140/90. Patient agrees with this plan. (3) Hyperlipidemia: Code(s): E78.5 - Hyperlipidemia, unspecified Plan: Avoid foods that are high in cholesterol such as red meat, fried foods, eggs and baked goods. Triglyceride goal of less than 150 and LDL goal of less than 100. Continue on simvastatin and Zetia. LDL at goal on last labs (4) Diabetes mellitus: Code(s): E11.9 - Type 2 diabetes mellitus without complications Plan: Decrease the amount of carbohydrates such as pasta, bread, rice, and potatoes and limit the amount of sweets. Although fruits are generally healthy they should be eaten in moderation as they are still high in sugar. Hemoglobin A1c goal of less than 7%. Currently on metformin 500 mg b.i.d., glipizide 10 mg p.o. b.i.d. Patient tells us today she is experiencing low blood sugars quantitative equity head and late at night as she does not have large meals during these times. Plan to decrease the glipizide to 5 mg b.i.d. at this time as it is likely related to the glipizide causing hypoglycemia. She will maintain on the glipizide 5 mg b.i.d. until she is able to obtain Jardiance 10 mg as this is a better substitution given her labile blood sugars. Reinforced dietary and lifestyle modification. Declining injections at this time Plan This note was constructed using voice recognition software. While every effort has been made to ensure accuracy and textile machinery sales representative, still areas may have been included sometimes these areas may affect the content or meeting of the given symptoms. Total time spent caring for the patient today was 30 minutes. This includes time spent before the visit reviewing the chart, time spent during the visit, and time spent after the visit and documentation. Patient was informed and verbally consented to the use of an ambient scribe for clinic note documentation during this visit. Orders: Orders AMB Hemoglobin A1c Today Z13.9 - Encounter for screening, unspecified Medications: New empagliflozin (Jardiance) 10 mg PO DAILY 90 tabs 0RF Refilled lancets TO CHECK BLOOD SUGARS ONCE A DAY 100 ea 3RF E11.9 - Type 2 diabetes mellitus without complications lancets Onetouch Lancets to check blood sugars once a day 100 ea 2RF D: E11.9 blood sugar diagnostic Onetouch Ultra test Strips To check blood sugars once a day 100 ea 3RF DX: E11.9 E11.9 - Type 2 diabetes mellitus without complications Discontinued glipizide Discontinued Reason: Patient no longer taking 10 mg (2 x 5 mg) PO BID 360 tabs 3RF Quality Reporting (2019) Depression/Bipolar (159/160/161/177) PHQ-9: Total score: 0 Coding Level of Care Code Medicare Subsequent (G0439) Diagnoses Encounter for subsequent annual wellness visit (AWV) in Medicare patient Z00.00 Hypertension I10 Hyperlipidemia E78.5 Diabetes mellitus E11.9 Additional Codes PHQ-9 - 55589 - PHQ-9 Billing: Yes ([id number])
== END 2025-07-09 15:02 | disposition home or self-care (01) ==
LOC: HO.HMCH 13:25
DX: Z00.00 Encounter for general adult medical examination without abnormal findings (principal); E11.69 Type 2 diabetes mellitus with other specified complication; I10 Essential (primary) hypertension; E78.5 Hyperlipidemia, unspecified

== ENCOUNTER → 2025-07-09 13:24 | Outpatient (BNVA) | payer MEDICARE, SELFPAY | DX: Z00.00 Encounter for general adult medical examination without abnormal findings (principal); I10 Essential (primary) hypertension; E78.5 Hyperlipidemia, unspecified; E11.9 Type 2 diabetes mellitus without complications | CPT/HCPCS: 83036; 96127 ==

== ENCOUNTER 2025-10-15 10:20 | Outpatient (AMB) | payer MEDICARE, SELFPAY ==
[2025-10-15 10:26] VITALS: BP 150/80; PULSE 89; TEMP 36.7; O2SAT 97; BMI 19.9
--- NOTE | 2025-10-15 10:26 | A.OFFPC_ITS ---
Vital Signs 10/15/25 10:26 10/15/25 11:10 Height 5 ft 6 in Weight 123 lb 8 oz BMI 19.9 BP 150/80 H 130/78 Blood Pressure Location Lt brachial Lt brachial Position Sitting Sitting Pulse 89 Pulse Source Pulse Oximeter Temp 98.1 F Temp Source Temporal Artery Scan Pulse Oximetry (%) 97 Oxygen Delivery Method Room Air Intake Visit Reasons: f/u DM Intake Note: 10/15/25 PT wants to discontinue med juardance and get back on glipzide. Patient is here today for MAZIN for Dr Swift Application Architect Required: No Traffic Investigator: Present Accompanied by: Spouse Allergies No Known Allergies Allergy (Verified 07/09/25 13:40) Medication List - Last Reconciled 10/15/25 by Shelbi Torres PA-C blood sugar diagnostic Onetouch Ultra test Strips To check blood sugars once a day gabapentin 300 mg PO BID lancets TO CHECK BLOOD SUGARS ONCE A DAY lancets Onetouch Lancets to check blood sugars once a day lisinopril 10 mg PO DAILY metformin 500 mg PO BID omeprazole 20 mg PO DAILY simvastatin 40 mg PO DAILY Tobacco use date assessed: 03/23/25 Fall risk assessment: No Falls in past year Last assessed Fall Risk: 03/23/25 Dental Screening Dental Screen Date: 03/23/25 Did you have a dental visit in the last 12 months?: No Did you have a dental problem in the last 6 months where you did not have access to dental care?: No Was dental information given to patient?: No HPI f/u DM HPI Details 80-year-old female with past medical his tory of diabetes mellitus, hypertension, hyperlipidemia last seen 06/2025 coming in for follow up on diabetes. Patient tells us today she has been monitoring her blood pressures at home and all values have been less than 140/90. She has been working on diet and exercise and has cut back on pasta, bread, rice and potatoes. She has been monitoring her blood sugars in the morning which are typically between 80 and 100. She denies any symptomatic lows. She also mentioned she was unable to obtain the Jardiance and has been using glipizide and feels this is beneficial for her. [facility] Medical History Diabetes mellitus Surgical History History of hip replacement Family History Mother No problems noted. Father No problems noted. Social History Housing: House Alcohol intake: never Patient Tobacco Use Status: Former Tobacco user Tobacco use type: Cigarette Years Smoked: 23 years ago QUIT e-Cigarette/Vaping Use: Never Used Second Hand Smoke Exposure: Yes service: No Current occupational status: retired Cognitive needs: No Hearing needs: No Vision needs: Yes (Glasses) Questionnaire PHQ-9 Over the last 2 weeks, how often have you been bothered by any of the following problems? 1. Little interest or pleasure in doing things: not at all 2. Feeling down, depressed, or hopeless: not at all 3. Trouble falling or staying asleep, or sleeping too much: not at all 4. Feeling tired or having little energy: not at all 5. Poor appetite or overeating: not at all 6. Feeling bad about yourself - or that you are a failure or have let yourself or your family down: not at all 7. Trouble concentrating on things, such as reading the newspaper or watching television: not at all 8. Moving or speaking so slowly that other people could have noticed. Or the opposite - being so fidgety or restless that you have been moving around a lot more than usual: not at all 9. Thoughts that you would be better off or of hurting yourself in some way: not at all Total score: 0 34514 - PHQ-9 Billing: Yes Source: Developed by Drs. Manav Cervantes, Mirlande Sifuentes, Luis Angel Diamond and colleagues, with an educational katya from [email or web address]. Thrive Questionnaire Date Thrive assessed: 03/23/25 I am a: Patient What is your living situation today?: I have a steady place to live Within the past 12 months, did the food you bought not last and you didn't have the money to get more?: Never true Within the past 12 months, did you worry whether your food would run out before you got money to buy more?: Never true Do you have trouble paying for medicines?: No Do you have trouble getting transportation to medical appointments?: No Do you have trouble paying your heating and electricity bill?: No Do you have trouble taking care of your child, family member or friend?: No Do you have trouble with day-to-day activities such as bathing, preparing meals, shopping, managing finances, etc.?: No Are you currently unemployed and looking for a job?: No Are you interested in more education?: No Please select the resources that you would like help with: None Currently or been in a relationship where the following occur: No concerns reported THRIVE Score: 0 AUDIT C Alcohol Use Questionnaire (AUDIT-C) 1. How often do you have a drink containing alcohol?: Never Total Score: 0 ESA-7 AMB Questionnaire ESA-7 Date ESA - 7 assessed: 03/23/25 Feeling nervous, anxious, or on edge: 0 = Not at all Not being able to stop or control worryin = Not at all Worrying too much about different things: 0 = Not at all Trouble relaxin = Not at all Being so restless that it is hard to sit still: 0 = Not at all Becoming easily annoyed or irritable: 0 = Not at all Feeling afraid as if something awful might happen: 0 = Not at all Total ESA-7 score (0-4 normal; 5-9 mild; 10-14 moderate; 15-21 severe): 0 Source: Developed by Drs. Manav Cervantes, Mirlande Sifuentes, Luis Angel Diamond and colleagues, with an educational katya from [email or web address]. ESA-7 Assessment Billing ESA-7 Assessment Tool: ESA-7 Assessment 49720 Review of Systems Const Denies body aches, Denies chills, Denies fever(s), Denies headache(s) and Denies poor appetite Eyes Reports no additional complaints ENT Denies dizziness and Denies headache(s) Card Denies chest pain, Denies edema, Denies lightheadedness and Denies dyspnea Resp Denies dyspnea GI Denies abdominal pain, Denies constipation, Denies diarrhea, Denies nausea and Denies vomiting Reports no additional complaints Musc Reports no additional complaints and Denies abnormal gait Skin/Breast Reports system reviewed and no additional complaints, except as documented Neuro Denies abnormal gait, Denies dizziness and Denies headache(s) Psych Reports no additional complaints Physical exam (Primary Care) Vital Signs: Last Vital Signs Temp 98.1 F 10/15/25 10:26 Pulse 89 10/15/25 10:26 BP 150/80 H 10/15/25 10:26 Pulse Ox 97 10/15/25 10:26 Oxygen Delivery Method Room Air 10/15/25 10:26 BMI result Body Mass Index 19.9 Tobacco/Smoking Status: Tobacco use Status Tobacco use date assessed 03/23/25 10/15/25 10:27 Patient Tobacco Use Status Former Tobacco user 10/15/25 10:27 Tobacco use type Cigarette 10/15/25 10:27 e-Cigarette/Vaping Use Never Used 10/15/25 10:27 PHQ-9: PHQ-9 Score PHQ-9: Total score 0 10/15/25 10:41 Thrive Assessment: Date of Thrive Assessment Date Thrive assessed 03/23/25 10/15/25 10:27 Currently or been in a relationship where the following occur: No concerns reported Const General: cooperative, healthy appearing, comfortable and no acute distress Orientation/consciousness: patient oriented x3 HENMT Head: Yes normocephalic Ears: hearing grossly normal bilaterally General nose exam: Normal external nose present Eyes General: appearance normal, both eyes and all related structures Conjunctivae: conjunctivae normal Neck Neck: Yes full ROM and Yes no lymphadenopathy Resp Effort & Inspection: normal respiratory effort Auscultation: clear to auscultation bilaterally, no crackles, no rales, no rhonchi and no wheezes Cardio Rate: regular rate Rhythm: regular rhythm Skin General skin exam: no rashes or lesions noted Neuro General: patient oriented x3 Gait exam (Neuro): Normal gait present Extrem General: Yes normal to inspection, Yes full ROM and No edema Psych Affect: normal affect Attitude: cooperative Insight: Good insight present (Psych) Judgement: Good judgement present (Psych) Results AMB Hemoglobin A1c AMB Hemoglobin A1c 6.8 % Last Edit by Eliza Zaragoza MA on 10/15/25 10:58 Coding Level of Care Code Est Pt Level 3 (94831) Diagnoses Hypertension I10 Hyperlipidemia E78.5 Diabetes mellitus E11.9 Additional Codes ESA-7 Assessment Billing - ESA-7 Assessment Tool: ESA-7 Assessment 11051 ([id number]) PHQ-9 - 42200 - PHQ-9 Billing: Yes ([id number]) Assessment & Plan Assessment & Plan (1) Hypertension: Code(s): I10 - Essential (primary) hypertension Category: Medical Plan: Continue on current blood pressure medication. Avoid salt intake and encourage healthy diet and regular exercise. At her last visit her BP was elevated however values at home were WNL. (2) Hyperlipidemia: Code(s): E78.5 - Hyperlipidemia, unspecified Category: Medical Plan: Avoid foods that are high in cholesterol such as red meat, fried foods, eggs and baked goods. Triglyceride goal of less than 150 and LDL goal of less than 100. Continue on simvastatin and Zetia. LDL at goal on last labs. Plan for updated labs prior to next visit. (3) Diabetes mellitus: Code(s): E11.9 - Type 2 diabetes mellitus without complications Category: Medical Plan: Decrease the amount of carbohydrates such as pasta, bread, rice, and potatoes and limit the amount of sweets. Although fruits are generally healthy they should be eaten in moderation as they are still high in sugar. Hemoglobin A1c goal of less than 7%. Currently on metformin 500 mg b.i.d. A1c improved at 6.8% she has continued on the glipizide 10 mg b.i.d. and denies any symptomatic lows. She will continue on metformin and Jardiance at this time. We did discuss following up at her annual and she will continue to monitor her blood sugars at home. If blood sugars are not well controlled she will reach out to the office and plan to start on Januvia. Plan This note was constructed using voice recognition software. While every effort has been made to ensure accuracy and educational program assistant, still areas may have been included sometimes these areas may affect the content or meeting of the given symptoms. Total time spent caring for the patient today was 20 minutes. This includes time spent before the visit reviewing the chart, time spent during the visit, and time spent after the visit and documentation. Patient was informed and verbally consented to the use of an ambient scribe for clinic note documentation during this visit. Orders: Orders AMB Hemoglobin A1c Today Z13.9 - Encounter for screening, unspecified Medications: Changed 2 From glipizide 10 mg (2 x 5 mg) PO BID 360 tabs 8RF To glipizide 10 mg (2 x 5 mg) PO BID 360 tabs 0RF 90 days
--- OUTSIDE RECORDS SUMMARY | 2025-10-15 11:01 | XMS_ITS | Data Portability ---
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 Problems Name Problem SNOMED Code Status Onset Date Resolution Date Notes Provider Name and Address Organization Details Recorded Time Diabetes mellitus 14629570 Active 2022 Janet ford PA - [facility] 18:57:10 Hypertensive disorder 71941312 Active 2022 Janet ford PA - [facility] 3 18:57:15 Neuropathy 616070270 Active 2022 Janet ford PA - [facility] 3 18:57:21 Acid reflux 982369333 Active 2022 [facility] [...] [Score] - Reported Respiratory rate Oxygen saturation Heart rate Body temperature Systolic And Diastolic Provider Name and Address Organization Details Last Updated DateTime 167.64 cm 20.6 kg/m2 25674.0 3 g 0 18 /min 99 % 88 /min 98.4 [degF] 174/80 mm[Hg] Janet Hall [facility] 18:59:38 Social History Question Answer Notes LastModified by [employer] Details LastModified Time Tobacco Smoking Status Never Smoker Janet ford PA [facility] 06/09/2023 18:58:17 Have You Recently Traveled Abroad? No Information not available 06/09/2023 Sex: Unknown Functional Status Question Answer Note LastModified by [employer] Details LastModified Time Do you use any [...] Diagnosis SNOMED-CT Code Diagnosis ICD10 Code Diagnosis IMO Codes Diagnosis Note [id number] [facility] [address] [place] [address] 05/23/2022 12:17:54 05/23/2022 14:12:06 [id number] [facility] [address] [place] [address] 09/12/2019 08:23:47 09/12/2019 08:46:34 [id number] Jason Alfaro DO [address] [place] [address] 06/09/2023 18:45:50 06/09/2023 19:36:47 Impacted cerumen of bilateral ears [id number] H61.23 Pt tolerated BL ear lavage wellEar [...] ID Guarantor Name 06/09/2023 1 [place] [email or web address] Ava Murrell [id number] Ava Murrell 06/09/2023 2 [place]MEDIC[place]AC[place] HMO) [id number] Ava Murrell [id number] Ava Murrell 06/14/2023 2 [place] [id number] Ava Murrell [id number] Ava Mrurell Notes Date Note Type Note Provider Name and Address Organization Details Recorded Time 06/09/2023 text/html Ear problem UCReported by [email or web address] yo femalec/o diminished hearing in R ear x 2 weekswent to PCP 05/31/23 and was told has wax in her right ear but did not remove it No traumano swimmingno ear dischargeNo feverNo chillsNo coughNo difficulty breathing or respiratory distressNo CPNo congestionNo ear painNo sore throatNo Abdominal painNo nauseaNo vomitingNp diarrheaNo myalgiaNo fatigueNo rashNo HANo dizzinessNo recent travelNo known sick contacts ROS as noted in the HPI Jason Alfaro DO [address] [place], [address], [place] PA - [facility] 06/09/2023 19:36:09 OBGyn Episode No OBEpisode recorded.
[2025-10-15 11:10] VITALS: BP 130/78
== END 2025-10-15 11:42 | disposition home or self-care (01) ==
LOC: HO.HMCH 10:21
DX: I10 Essential (primary) hypertension (principal); E78.5 Hyperlipidemia, unspecified; E11.9 Type 2 diabetes mellitus without complications; Z13.9 Encounter for screening, unspecified

== ENCOUNTER → 2025-10-15 10:20 | Outpatient (BNVA) | payer MEDICARE, SELFPAY | DX: E11.9 Type 2 diabetes mellitus without complications (principal); I10 Essential (primary) hypertension; E78.5 Hyperlipidemia, unspecified; Z13.31 Encounter for screening for depression | CPT/HCPCS: 83036; 96127; 99212 ==